=== PATIENT | male | born 1935 | race Hispanic/Latino ===

== ENCOUNTER → 2017-12-05 | Outpatient (CLI) | payer OTHER | END | disposition home or self-care (01) | LOC: OIH 15:31 | PROVIDERS: ATTEND Family Medicine | DX: J44.9 Chronic obstructive pulmonary disease, unspecified (principal); Z87.891 Personal history of nicotine dependence | CPT/HCPCS: 71046 ==

== ENCOUNTER → 2020-01-25 | Outpatient (CLI) | payer OTHER | END | disposition home or self-care (01) | LOC: RAH 11:25 | PROVIDERS: ATTEND Family Medicine | DX: N40.0 Benign prostatic hyperplasia without lower urinary tract symptoms (principal); N28.1 Cyst of kidney, acquired; R31.9 Hematuria, unspecified | CPT/HCPCS: 76770 ==

== ENCOUNTER 2021-05-12 06:44 | Day surgery (SDC) | payer OTHER ==
[~2021-05-12 06:44] MED LIST: 0.9%NACL 1000ML 1,000 ML IV ONE; DOCU-133 PO; MAGN250T2 PO; MULT-1203 PO
[2021-05-12] MEDS ORDERED: PROPOFOL 10 MG/ML 20ML VIAL IV ONE (09:32)
[2021-05-12 09:45] VITALS: BP 93/56
[2021-05-12 09:50] VITALS: BP 85/55
[2021-05-12 09:55] VITALS: BP 93/56
[2021-05-12 10:00] VITALS: BP 112/71
[2021-05-12 10:10] VITALS: BP 115/72
== END 2021-05-12 10:15 | disposition home or self-care (01) ==
LOC: DAH 06:44 → ENDO 06:44
PROVIDERS: ATTEND Internal Medicine Gastroenterology
DX: K64.1 Second degree hemorrhoids (principal); Z20.822 Contact with and (suspected) exposure to COVID-19; K59.00 Constipation, unspecified; N40.0 Benign prostatic hyperplasia without lower urinary tract symptoms; Z79.899 Other long term (current) drug therapy; Z90.49 Acquired absence of other specified parts of digestive tract; Z98.890 Other specified postprocedural states
CPT/HCPCS: 45350; 87635; A4215 ×2; A4221; A4222; A4223; A4606; A4620; A4663; C9803; J2704; J7030